=== PATIENT | male | born 1990 | race Caucasian/White ===

== ENCOUNTER 2019-05-05 14:58 | Emergency (ER) | payer OTHER ==
[2019-05-05] MEDS ORDERED: cephALEXin 250 MG CAPSULE PO STA (15:54)
[2019-05-05] MEDS ORDERED: IBUPROFEN 800 MG TABLET PO STA (15:54)
[2019-05-05] MEDS ORDERED: DEXAMETHASONE 10 MG/ML VIAL PO STA (15:54)
[2019-05-05] MEDS ORDERED: CHERRY SYRUP 10 ML UDC PO ONE (15:54)
--- NOTE | 2019-05-05 15:55 | ED Physician Documentation ---
History of Present Illness - Stated complaint Stated Complaint: SORE THROAT, LOW FEVER, NECK PX - Chief complaint Chief Complaint: Heent - History obtained from History obtained from: Patient - History of Present Illness Timing: How many weeks ago (1.5) Pain level max: 6 Pain level now: 4 - Additonal information Additional information: 29-year-old male presents the emergency department stating that he was treated for strep pharyngitis last week as well as his partner. He was placed on Augmentin but does not feel as if he improved. His strep swab is positive. He also was told that he has a swollen lymph node on the side of his neck and this is still present. Has not changed or grown in size. No fevers. No vomiting. Worse with palpation. Nothing makes it better. Review of Systems Constitutional: denies: Fever, Chills Ears: denies: Ear pain Nose: denies: Rhinorrhea / runny nose, Congestion Throat: reports: Sore throat Cardiac: denies: Chest pain / pressure Respiratory: denies: Cough GI: denies: Abdominal Pain, Nausea, Vomiting, Diarrhea Skin: denies: Rash Musculoskeletal: denies: Neck pain, Back pain Neurologic: denies: Headache PD PAST MEDICAL HISTORY - Past Medical History Past Medical History: No - Past Surgical History Past Surgical History: No - Present Medications Home Medications: Ambulatory Orders Medication Instructions Recorded Confirmed Cephalexin [Keflex] 500 mg PO Q6H #40 capsule 05/05/19 Ibuprofen [Motrin] 800 mg PO Q8H PRN #30 tablet 05/05/19 predniSONE [Prednisone] 40 mg PO DAILY #10 tablet 05/05/19 - Allergies Allergies/Adverse Reactions: Allergies Allergy/AdvReac Type Severity Reaction Status Date / Time No Known Drug Allergies Allergy Verified 05/05/19 15:12 - Living Situation Living Arrangement: reports: At home - Social History Does the pt have substance abuse?: No - Family History Family history: reports: Non contributory PD ED PE NORMAL - Vitals Vital signs reviewed: Yes - General General: Alert and oriented X 3, No acute distress, Well developed/nourished - HEENT HEENT: PERRL, Ears normal, Moist mucous membranes, Other (Posterior pharyngeal erythema with tonsillar exudates. Uvula midline. Normal phonation. No trismus.) - Neck Neck: Supple, no meningeal sign, Other (Shotty anterior and posterior cervical lymphadenopathy, mainly on the left.) - Cardiac Cardiac: RRR, Strong equal pulses - Respiratory Respiratory: No respiratory distress, Clear bilaterally - Abdomen Abdomen: Soft, Non tender, Non distended - Derm Derm: Warm and dry, No rash - Extremities Extremities: No deformity - Neuro Neuro: Alert and oriented X 3 - Psych Psych: Normal mood, Normal affect Results - Vitals Vitals: Vital Signs - 24 hr 05/05/19 15:09 Temperature 36.6 C Heart Rate 62 Respiratory 18 Rate Blood Pressure 135/70 H O2 Saturation 100 Oxygen O2 Source Room air PD MEDICAL DECISION MAKING - ED course Complexity details: considered differential, d/w patient ED course: Patient with apparent continued strep pharyngitis. We will change antibiotics. Also given dexamethasone. Will place on a small burst dose of steroids as well. Patient with no evidence of peritonsillar or retropharyngeal abscess. Patient counseled regarding signs and symptoms for which I believe and urgent re-evaluation would be necessary. Patient with good understanding of and agreement to plan and is comfortable going home at this time This document was made in part using voice recognition software. While efforts are made to proofread this document, sound alike and grammatical errors may occur. Tolerating p.o. without difficulty. Well-hydrated. Nontoxic Departure - Departure Disposition: 01 Home, Self Care Clinical Impression: Strep pharyngitis Condition: Good Instructions: ED Strep Pharyngitis Conf Follow-Up: your,doctor in 1 week [Other] Prescriptions: Cephalexin [Keflex] 500 mg PO Q6H #40 capsule Ibuprofen [Motrin] 800 mg PO Q8H PRN #30 tablet PRN Reason: PAIN &/OR FEVER predniSONE [Prednisone] 40 mg PO DAILY #10 tablet Comments: Take all antibiotics until gone. Return if you worsen. Follow-up with your doctor for further care. Drink plenty of fluids.
[2019-05-05 16:15] VITALS: BP 124/68
== END 2019-05-05 16:15 | disposition home or self-care (01) ==
LOC: ED 14:58
DX: J02.0 Streptococcal pharyngitis (principal)
CPT/HCPCS: 99283; 99284; A9270

== ENCOUNTER 2019-05-16 07:00 | Outpatient (CLI) | payer OTHER | END 2019-05-16 07:01 | disposition home or self-care (01) | LOC: LAB.R 07:00 | PROVIDERS: ATTEND Physician Assistant | DX: J02.0 Streptococcal pharyngitis (principal) | CPT/HCPCS: 87070 ==

== ENCOUNTER 2019-05-16 11:51 | Outpatient (CLI) | payer OTHER ==
[2019-05-16 12:04] LABS: BASOPHILS % (AUTO) 0.5 %; EOSINOPHILS # (AUTO) 0.2 10^3/uL (0.0-0.7); EOSINOPHILS % (AUTO) 2.5 %; HGB - HEMOGLOBIN 15.3 g/dL (14.0-18.0); LYMPHOCYTES % (AUTO) 46.6 %; MEAN CORPUSCULAR HEMOGLOBIN 26.7 pg (27.0-31.0); MEAN CORPUSCULAR HGB CONC 32.5 g/dL (32.0-36.0); MEAN CORPUSCULAR VOLUME 82.3 fL (80.0-94.0); MEAN PLATELET VOLUME 9.8 fL (7.4-11.4); MONOCYTES # (AUTO) 0.5 10^3/uL (0.0-1.0); NEUTROPHILS # (AUTO) 2.7 10^3/uL (1.5-6.6); NEUTROPHILS % (AUTO) 42.1 %; PLT - PLATELET COUNT 141 10^3/uL (130-450); RED BLOOD COUNT 5.72 10^6/uL (4.70-6.10); RED CELL DISTRIBUTION WIDTH 12.9 % (12.0-15.0); WHITE BLOOD COUNT 6.4 x10^3/uL (4.8-10.8)
== END 2019-05-16 11:52 | disposition home or self-care (01) ==
LOC: LAB 11:51
PROVIDERS: ATTEND Physician Assistant
DX: J02.0 Streptococcal pharyngitis (principal); G89.29 Other chronic pain; M54.2 Cervicalgia; H92.09 Otalgia, unspecified ear
CPT/HCPCS: 36415; 85025; 87070

== ENCOUNTER 2019-05-20 13:35 | Outpatient (CLI) | payer OTHER ==
[2019-05-20 13:49] LABS: BASOPHILS % (AUTO) 0.2 %; LYMPHOCYTES # (AUTO) 1.1 10^3/uL (1.5-3.5); LYMPHOCYTES % (AUTO) 12.5 %; MEAN CORPUSCULAR HEMOGLOBIN 27.6 pg (27.0-31.0); MEAN CORPUSCULAR VOLUME 81.2 fL (80.0-94.0); MEAN PLATELET VOLUME 9.5 fL (7.4-11.4); MONOCYTES # (AUTO) 0.4 10^3/uL (0.0-1.0); MONOCYTES % (AUTO) 4.6 %; NEUTROPHILS # (AUTO) 7.4 10^3/uL (1.5-6.6); NEUTROPHILS % (AUTO) 82.4 %; PLT - PLATELET COUNT 150 10^3/uL (130-450); RED BLOOD COUNT 5.79 10^6/uL (4.70-6.10); RED CELL DISTRIBUTION WIDTH 12.8 % (12.0-15.0); WHITE BLOOD COUNT 8.9 x10^3/uL (4.8-10.8)
== END 2019-05-20 13:36 | disposition home or self-care (01) ==
LOC: LAB 13:35
PROVIDERS: ATTEND Physician Assistant
DX: J02.9 Acute pharyngitis, unspecified (principal); R53.83 Other fatigue; G89.29 Other chronic pain; M54.2 Cervicalgia; H92.09 Otalgia, unspecified ear
CPT/HCPCS: 36415; 84443; 85025; 86308

== ENCOUNTER 2020-05-08 15:20 | Outpatient (CLI) | payer OTHER ==
[2020-05-08 16:22] LABS: BASOPHILS % (AUTO) 0.8 %; EOSINOPHILS % (AUTO) 0.6 %; HGB - HEMOGLOBIN 14.6 g/dL (14.0-18.0); LYMPHOCYTES # (AUTO) 1.7 10^3/uL (1.5-3.5); LYMPHOCYTES % (AUTO) 35.5 %; MEAN CORPUSCULAR HGB CONC 32.7 g/dL (32.0-36.0); MEAN CORPUSCULAR VOLUME 82.8 fL (80.0-94.0); MEAN PLATELET VOLUME 9.9 fL (7.4-11.4); MONOCYTES # (AUTO) 0.3 10^3/uL (0.0-1.0); MONOCYTES % (AUTO) 6.4 %; NEUTROPHILS # (AUTO) 2.8 10^3/uL (1.5-6.6); NEUTROPHILS % (AUTO) 56.7 %; PLT - PLATELET COUNT 143 10^3/uL (130-450); RED CELL DISTRIBUTION WIDTH 13.2 % (12.0-15.0); WHITE BLOOD COUNT 4.9 x10^3/uL (4.8-10.8)
--- NOTE | 2020-05-08 16:29 | Ultrasound Report ---
PROCEDURE: Head or Neck Soft Tissue INDICATIONS: CHRONIC NECK PAIN TECHNIQUE: Real time scanning was performed of the neck region of interest, with image documentation . COMPARISON: None. FINDINGS: Multiple grayscale and color Doppler images over the patient directed area of pain were ac quired. This localized to the left sternocleidomastoid muscle as well as the left trapezius. No suspi cious mass, disturbed parenchymal echotexture, focal fluid collection, or overlying skin abnormalitie s seen. Normal sonographic appearance of the musculature without evidence for tears or edema. For com parison, the contralateral sternocleidomastoid and trapezius muscles were interrogated and demonstrat e similar appearance. IMPRESSION: No soft tissue neck abnormality seen bilaterally Reviewed by: Pio Johnson MD on 05/08/2020 4:27 PM PST Approved by: Pio Johnson MD on 05/08/2020 4:27 PM PST Station ID: [id number]
== END 2020-05-08 15:21 | disposition home or self-care (01) ==
LOC: DI 15:20
PROVIDERS: ATTEND Physician Assistant
DX: M54.2 Cervicalgia (principal); G89.29 Other chronic pain; R53.83 Other fatigue; Z79.1 Long term (current) use of non-steroidal anti-inflammatories (NSAID)
CPT/HCPCS: 36415; 84443; 85025